=== PATIENT | female | born 1980 | race Caucasian/White ===

== ENCOUNTER 2017-03-15 08:07 | Day surgery (SDC) | payer OTHER ==
[~2017-03-15] VITALS: Ht 167.6 cm; Wt 121.0 kg
[~2017-03-15 08:07] MED LIST: ALBU8.5H3 INH; BUPIVACAINE/PF 0.5% ONE; MOME13HF INH; ROPIvacaine/PF 0.5%, 20 ML ONE; THEO400T2 PO; TIOT18CA INH
[2017-03-15] MEDS ORDERED: LACTATED RINGERS 1,000 ML IV SCH (08:44)
[2017-03-15] MEDS ORDERED: OMAL150V IM (08:46)
[2017-03-15 09:08] LABS: HCG UR OBC PASS
[2017-03-15] MEDS ORDERED: FENTANYL PF 250 MCG/5ML ONE (09:27)
[2017-03-15] MEDS ORDERED: MIDAZOLAM 1 MG/ML, 2ML ONE (09:27)
[2017-03-15] MEDS ORDERED: DEXAMETHASONE 4 MG/ML, 1ML ONE (10:28)
[2017-03-15] MEDS ORDERED: ALBUTEROL SULFATE 200 PUFFS/8.5 GR INH ONE (10:28)
[2017-03-15] MEDS ORDERED: ONDANSETRON 2MG/ML, 2ML ONE (10:28)
[2017-03-15] MEDS ORDERED: CEFAZOLIN 1,000 MG ONE (10:28)
[2017-03-15] MEDS ORDERED: PROPOFOL 10 MG/ML, 50ML ONE (10:28)
[2017-03-15] MEDS ORDERED: LIDOCAINE 1%, 50ML INFIL ONE (10:52)
[2017-03-15] MEDS ORDERED: HYDROmorphone 1 MG/ML, 1ML ONE (11:33)
[2017-03-15] MEDS ORDERED: MEPERIDINE/PF 25MG/0.5ML ONE (12:52)
[2017-03-15] MEDS ORDERED: ALBUTEROL/IPRATROPIUM 2.5MG/0.5MG, 3 ML NPPB PRN (13:30)
[2017-03-15] MEDS ORDERED: HYDROcodone/APAP 7.5-325MG/15ML UDC PO PRN (13:30)
[2017-03-15] MEDS ORDERED: FENTANYL PF 100 MCG/2ML IV PRN (13:30)
[2017-03-15] MEDS ORDERED: HYDROmorphone 1 MG/ML, 1ML IV PRN (13:30)
[2017-03-15] MEDS ORDERED: PROMETHAZINE 25 MG/ML, 1ML IV PRN (13:30)
[2017-03-15] MEDS ORDERED: ONDANSETRON 2MG/ML, 2ML IVPush PRN (13:30)
[2017-03-15] MEDS ORDERED: MEPERIDINE/PF 25MG/0.5ML IVPush PRN (13:30)
[2017-03-15] MEDS ORDERED: OXYcodone 5 MG/5 ML ORAL.SOL UDC PO PRN (13:30)
[2017-03-15] MEDS ORDERED: ACETAMINOPHEN 325 MG TABLET PO PRN (13:30)
[2017-03-15] MEDS ORDERED: MIDAZOLAM 1 MG/ML, 2ML IV PRN (13:30)
== END 2017-03-15 17:45 | disposition home or self-care (01) ==
LOC: OUT 08:07
PROVIDERS: ATTEND Orthopaedic Surgery
DX: T84.84XA Pain due to internal orthopedic prosthetic devices, implants and grafts, initial encounter (principal); M24.672 Ankylosis, left ankle; M21.6X2 Other acquired deformities of left foot; M25.372 Other instability, left ankle; J45.909 Unspecified asthma, uncomplicated; Z87.891 Personal history of nicotine dependence; Z98.51 Tubal ligation status; Z82.3 Family history of stroke; Z82.61 Family history of arthritis; Z82.49 Family history of ischemic heart disease and other diseases of the circulatory system; E66.01 Morbid (severe) obesity due to excess calories; Z68.41 Body mass index [BMI] 40.0-44.9, adult; M65.872 Other synovitis and tenosynovitis, left ankle and foot; G89.18 Other acute postprocedural pain; Y83.1 Surgical operation with implant of artificial internal device as the cause of abnormal reaction of the patient, or of later complication, without mention of misadventure at the time of the procedure
CPT/HCPCS: 27707; 27871; 29891; 29898; 73610; 76000; 81025; C1713; J0690; J1100; J1170; J2175; J2250; J2405; J2704; J2795; J3010; J3490; J7120; 76001

== ENCOUNTER → 2017-12-24 | Outpatient (CLI) | payer OTHER ==
[~2017-12-24] MED LIST changes: -ALBU8.5H3 INH; +ALBU8.5H8 INH; -BUPIVACAINE/PF 0.5% ONE; +OMAL150V IM; -ROPIvacaine/PF 0.5%, 20 ML ONE
== END | disposition home or self-care (01) ==
LOC: CFH 07:40
PROVIDERS: ATTEND Nurse Practitioner
DX: M25.572 Pain in left ankle and joints of left foot (principal); M25.372 Other instability, left ankle; M79.89 Other specified soft tissue disorders; Z98.890 Other specified postprocedural states